=== PATIENT | female | born 1970 | race Caucasian/White ===

== ENCOUNTER 2017-02-25 14:05 | Inpatient (IN) | payer OTHER ==
[~2017-02-25] VITALS: Ht 160 cm; Wt 108.2 kg
[2017-02-25 14:59] LABS: HEMOGLOBIN 14.4 G/DL (11.9-15.5); MCHC 34.3 G/DL (30.0-36.0); MCV 87.5 FL (83-99); PLATELET COUNT 306 K/uL (156-360); RBC DIS.WIDTH-SD 38.7 % (39-53); WHITE BLOOD COUNT 12.3 K/uL (4.1-10.2)
[2017-02-25 15:08] LABS: ALBUMIN 4.2 g/dL (3.2-4.8)
[2017-02-25 15:09] LABS: CHLORIDE 106 mEq/L (99-109); POTASSIUM 4.1 mEq/L (3.7-5.4); SODIUM 139 mEq/L (136-147)
[2017-02-25 15:11] LABS: GLUCOSE 107 mg/dL (70-99); TOTAL PROTEIN 7.7 g/dL (6.4-8.3)
[2017-02-25 15:13] LABS: TOTAL BILIRUBIN 1.4 mg/dL (0.0-1.0)
[2017-02-25 15:14] LABS: ALKALINE PHOSPHATASE 300 IU/L (3-129)
[2017-02-25 15:15] LABS: GFR ESTIMATE (CALCULATED) > 59 mL/min/
[2017-02-25 15:16] LABS: AST (GOT) 293 IU/L (2-34); UREA NITROGEN (BUN) 13 mg/dL (9-23)
[2017-02-25 15:17] LABS: ALT (GPT) 368 IU/L (3-49)
[2017-02-25 15:18] LABS: LIPASE 14 U/L (1.0-51.0)
[2017-02-25 15:19] LABS: TROP-I INTERPRETATION NEGATIVE; TROPONIN-I < 0.01 ng/mL (0.0-0.30)
[2017-02-25 15:24] LABS: QUANTITATIVE HCG < 4.0 MIU/ML
[2017-02-25 19:25] LABS: APPEARANCE BLOODY ((CLEAR)); COLOR BLOODY ((YELLOW))
[2017-02-25 19:26] LABS: BILIRUBIN SMALL; BLOOD LARGE; GLUCOSE (STRIP) NEGATIVE; KETONES SMALL; LEUKOCYTES MODERATE; NITRITE NEGATIVE; PROTEIN (STRIP) 30; UROBILINOGEN 0.2 MG/DL (0.2-1.0)
[2017-02-25 19:27] LABS: RED BLOOD CELLS TNTC /HPF (0-5)
[2017-02-25 19:28] LABS: UCUL ADDED? YES
[2017-02-25 21:43] LABS: INTER. NORMALIZED RATIO 1.1
[2017-02-25 21:45] LABS: PTT 34.4 SEC (25-37)
[2017-02-25] MEDS ORDERED: LOPRESSOR25 MG PO (21:46)
[2017-02-25] MEDS ORDERED: COZAAR100 MG PO (21:46)
[2017-02-25] MEDS ORDERED: NORVASC5 MG PO (21:53)
[2017-02-25] MEDS ORDERED: LOW DOSE ASPIRI81 M1 PO (21:54)
[2017-02-25] MEDS ORDERED: FIORICET 50-301 EAC1 PO (21:55)
[2017-02-25] MEDS ORDERED: ZYBAN 150 MG T150 MG PO (21:56)
[2017-02-25] MEDS ORDERED: PROTONIX40 MG PO (21:57)
[2017-02-26] VITALS (8 sets, daily range): BP systolic 110–142; BP diastolic 58–76
[2017-02-26 06:01] LABS: HEMATOCRIT 35.9 % (36.0-46.0); HEMOGLOBIN 12.1 G/DL (11.9-15.5); MCHC 33.7 G/DL (30.0-36.0); MCV 88.9 FL (83-99); PLATELET COUNT 232 K/uL (156-360); RBC DIS.WIDTH-CV 12.2 % (11.8-14.6); RBC DIS.WIDTH-SD 39.8 % (39-53); RED BLOOD COUNT 4.04 M/uL (3.80-5.20); WHITE BLOOD COUNT 9.6 K/uL (4.1-10.2)
[2017-02-26 06:25] LABS: ALBUMIN 3.4 G/DL (3.2-4.8); ALKALINE PHOSPHATASE 218 IU/L (3-129); ALT (GPT) 205 IU/L (3-49); AST (GOT) 118 IU/L (2-34); CHLORIDE 104 MEQ/L (99-109); CREATININE 1.1 MG/DL (0.6-1.3); GFR ESTIMATE (CALCULATED) 57 mL/min/; GLUCOSE 111 mg/dL (70-99); SODIUM 142 MEQ/L (136-147); TOTAL BILIRUBIN 0.8 MG/DL (0.0-1.0); TOTAL PROTEIN 5.8 G/DL (6.4-8.3); UREA NITROGEN (BUN) 11 mg/dL (9-23)
[2017-02-27 03:55] VITALS: BP 124/71
[2017-02-27 05:27] LABS: HEMATOCRIT 36.3 % (36.0-46.0); HEMOGLOBIN 12.1 G/DL (11.9-15.5); MCH 29.7 PG (29.0-34.0); MCHC 33.3 G/DL (30.0-36.0); PLATELET COUNT 228 K/uL (156-360); RED BLOOD COUNT 4.08 M/uL (3.80-5.20); WHITE BLOOD COUNT 9.6 K/uL (4.1-10.2)
[2017-02-27 06:56] LABS: ALBUMIN 3.3 G/DL (3.2-4.8); ALKALINE PHOSPHATASE 184 IU/L (3-129); ALT (GPT) 164 IU/L (3-49); AST (GOT) 78 IU/L (2-34); CHLORIDE 103 MEQ/L (99-109); GFR ESTIMATE (CALCULATED) > 59 mL/min/; GLUCOSE 140 mg/dL (70-99); POTASSIUM 3.8 MEQ/L (3.7-5.4); SODIUM 137 MEQ/L (136-147); TOTAL PROTEIN 6.3 G/DL (6.4-8.3); UREA NITROGEN (BUN) 8 mg/dL (9-23)
[2017-02-27 07:00] LABS: TOTAL BILIRUBIN 0.6 MG/DL (0.0-1.0)
[2017-02-27 08:02] VITALS: BP 125/81
[2017-02-27 11:07] VITALS: BP 113/64
== END 2017-02-27 14:54 | disposition home or self-care (01) | DRG 418 ==
LOC: EME 14:05 → 3EAST 21:04 → EDOF 21:04 → 3EAST 21:04 → ENRESERV 21:07 → 3EAST 02-26 00:48
PROVIDERS: Surgery
DX: K80.42 Calculus of bile duct with acute cholecystitis without obstruction (principal); K80.00 Calculus of gallbladder with acute cholecystitis without obstruction; Q44.5 Other congenital malformations of bile ducts; E66.01 Morbid (severe) obesity due to excess calories; K82.1 Hydrops of gallbladder; K21.9 Gastro-esophageal reflux disease without esophagitis; I10 Essential (primary) hypertension; D68.51 Activated protein C resistance; F32.9 Major depressive disorder, single episode, unspecified; F41.0 Panic disorder [episodic paroxysmal anxiety]; Z68.41 Body mass index [BMI] 40.0-44.9, adult; Q89.9 Congenital malformation, unspecified
CPT/HCPCS: 71046; 76705; 80053; 81003; 83690; 84484; 84702; 85027; 85610; 85730; 87070; 87075; 87086; 87205; 88304; 88305; 90686; 93005; 99281; 99285; J0131; J1100; J1170; J1650; J2250; J2405; J2710; J2765; J3010; J7120; S0074